=== PATIENT | female | born 1960 | race Caucasian/White ===

== ENCOUNTER 2018-02-15 04:36 | Emergency (ER) | payer MEDICARE, SELFPAY ==
[2018-02-15 04:38] VITALS: BP 152/115; PULSE 121; RESP 18; TEMP 36.7; O2SAT 95
--- NOTE | 2018-02-15 04:40 | CT_ITS ---
STUDY: CT ABDOMEN AND PELVIS WITH CONTRAST REASON FOR EXAM: Female, 57 years old. Abdominal pain, nausea and vomiting. RADIATION DOSAGE (If Supplied By Facility): CTDIvol = ( 17.53 ) mGy, DLP = ( 1064.19 ) mGycm TECHNIQUE: Transaxial images were obtained from the dome of the diaphragm to the symphysis pubis with oral contrast. 100mL ml of Isovue 300 contrast was administered. Sagittal and coronal images were reconstructed. Individualized dose optimization techniques were used for this CT. COMPARISON: 10/17/2016 FINDINGS: Some scarring in the left lung base. The visualized portions of the heart are within normal limits. Normal liver. There are multiple gallstones. Normal spleen. There is diffuse atrophy of the pancreas. Normal bilateral adrenal glands. There is mild cortical atrophy of the right kidney, consistent with chronic medical renal disease. There is mild cortical atrophy of the left kidney, consistent with chronic medical renal disease. Mild bilateral hydronephrosis. Patient is status post bladder resection with urostomy. There is a small hiatal hernia. Mildly distended loops of small bowel in the lower abdominal region with tiny air-fluid levels. No evidence of definitive small bowel obstruction. Right lower quadrant colostomy is noted. Extensive fecal retention noted throughout the colon with large left lower quadrant hernia containing loops of colon with possible developing wall thickening and some pericolonic edema.. There is non-visualization of the appendix. Normal abdominal aorta. Normal inferior vena cava. Normal retroperitoneum. Uterine atrophy is noted. CT/Abdomen/Pelvis WITH Contrast IMPRESSION: 1. Several loops of distal small bowel demonstrating mild distention with tiny air-fluid levels. Right lower quadrant ostomy. More likely to represent ileus and less likely small bowel obstruction however, follow-up plain films may be needed 2. Prominent fecal retention throughout the remainder of the colon 3. Again noted are loops of colon within a large hernia in the left lower quadrant region. Some of these loops demonstrate some wall thickening with pericolonic fat stranding in mild edema. 4. Remaining chronic findings as above Electronically Signed: Fabio Monteiro DO at 7:52 EDT Tel , Service support ,
[2018-02-15] MEDS: proMETHazine 25 MG/ML Syringe 12.5 MG IV (04:53)
[2018-02-15] MEDS: HYDROmorphone 1 MG/ML Syringe IV (04:54)
[2018-02-15 05:06] LABS: Absolute Lymphocyte Count 1.03 X10^3/ul (0.83-4.51); Absolute Neutrophil Count 7.7 X10^3/uL (2.0-7.7); Basophil# 0.02 X10^3/uL; Basophil% 0.2 % (0-1); Eosinophil# 0.12 X10^3/uL; Eosinophils% 1.3 % (0-5); Hematocrit 40.9 % (37-47); Hemoglobin 13.8 g/dl (12.0-15.0); Lymphocyte # 1.03 X10^3/ul (4.0); Lymphocyte % 11.2 % (19-41); Mean Corp Hgb Conc 33.7 g/gl (32-36); Mean Corpuscular Volume 79.9 fL (81-99); Mean Platelet Vol. 8.7 fl (6.2-12.0); Monocyte# 0.31 X10^3/uL; Monocyte% 3.4 % (0-10); Neutrophil % 83.5 % (47-70); Platelet Count 303 K/mm3 (150-450); RBC Distribution Width CV 14.4 % (11.6-14.6); RBC Distribution Width SD 40.7 fl (35.1-43.9); Red Blood Count 5.12 M/mm3 (4.2-5.4); White Blood Count 9.2 K/mm3 (4.4-11.0)
[2018-02-15 05:07] LABS: POSITIVE COUNT NO; POSITIVE DIFFERENTIAL NO; POSITIVE MORPHOLOGY NO
[2018-02-15 05:25] LABS: ALB/GLOB Ratio 0.7 RATIO (0.9-2.4); AST(SGOT) 15 U/L (15-37); Alanine Aminotransfer ALT/SGPT 21 U/L (13-56); Albumin, Serum 3.6 g/dL (3.2-5.0); Alkaline Phosphatase 76 U/L (45-117); Anion Gap 9 (5-15); BUN 21 mg/dL (7-18); BUN/Creat Ratio 41.7 RATIO (10-20); Calcium,Total 9.2 mg/dL (8.5-10.1); Chloride 102 mmol/L (98-107); EST Glomerular Filtration Rate 135 mL/min (>60); Est Glom Filt Rate - Afr Amer 163 mL/min (>60); Estimated Creatinine Clearance 138.28 ml/min; Globulin 4.9 g/dL (2.2-4.2); Glucose 212 mg/dL (74-106); Lipase 334 U/L (73-393); Potassium 3.8 mmol/L (3.5-5.1); Protein, Total 8.5 g/dL (6.4-8.2); Sodium Level 136 mmol/L (136-145)
--- NOTE | 2018-02-15 05:28 | ED.DCSUM_ITS ---
- ER Visit Summary Date of Service: 02/15/18 Chief Complaint: Abdominal pain History of Present Illness: The patient is a 57 F who presents with abdominal pain. She states that the symptoms started today when she woke up suddenly. She describes sharp diffuse pain in her abdomen. She has had nausea and vomiting at home. The patient has a colostomy in place. She states she had a normal bowel movement yesterday but no diarrhea. She is unsure about the output of her ostomy today. She also has a urostomy in the right upper quadrant. She has no fever. She took no medications for this at home. Physical Examination: Vital signs reviewed. HEENT exam unremarkable. Heart is cardiac in regular rhythm without murmurs. Lungs are clear to auscultation. Abdomen is soft diffuse tenderness to palpation. The patient has a colostomy in the left lower quadrant and a urostomy in the right upper quadrant. These areas appear to be unremarkable. Extremities reveal that she has bilateral amputations. Skin exam normal. Neurologic exam normal. Test Results: Laboratory studies are unremarkable except for glucose of 212. Patient was medicated with Dilaudid and Phenergan. Patient will have a CT scan with p.o. and IV contrast to rule out any bowel issues. Emergency Department Course and Treatment: [] Treatment Plan: [] Disposition: [] Impression: [] This note was generated with [employer] dictation software. It may contain incorrect words, spelling, and punctuation that were not noted in review of the chart prior to signing ED Disposition - Plan for ED Patient: Chief Complaint: Abd Pain Referrals: Adele Park MD [Primary Care Provider] -
[2018-02-15 06:39] VITALS: BP 122/72; PULSE 100; RESP 16
--- NOTE | 2018-02-15 08:20 | ED.VISSUMM ---
- ER Visit Summary Date of Service: 02/15/18 Chief Complaint: [] History of Present Illness: The patient is a 57 F [] Physical Examination: [] Test Results: [] Emergency Department Course and Treatment: [] Treatment Plan: [] Disposition: [] Impression: [] This note was generated with [employer] dictation software. It may contain incorrect words, spelling, and punctuation that were not noted in review of the chart prior to signing ED Disposition - Plan for ED Patient: Disposition: Home or Assisted Living Chief Complaint: Abd Pain Instructions: ED Constipation Referrals: Adele Park MD [Primary Care Provider] - 3-5 Days if not improving
== END 2018-02-15 09:00 | disposition home or self-care (01) ==
PROVIDERS: Emergency Provider Emergency Medicine; Family Provider Internal Medicine; PCP Internal Medicine
DX: R10.9 Unspecified abdominal pain (principal); R14.0 Abdominal distension (gaseous); K56.7 Ileus, unspecified; K59.00 Constipation, unspecified; K46.9 Unspecified abdominal hernia without obstruction or gangrene; G82.20 Paraplegia, unspecified; Z93.3 Colostomy status; Z93.6 Other artificial openings of urinary tract status; Z89.612 Acquired absence of left leg above knee; Z89.611 Acquired absence of right leg above knee
CPT/HCPCS: 74177; 80053; 83690; 85025; 96374; 96375; 99285; Q9967; A4216

== ENCOUNTER → 2018-05-31 17:26 | Outpatient (CLI) | payer MEDICARE, SELFPAY ==
[2018-05-31 19:46] LABS: Amphetamine Urine VISTA NEGATIVE (<1000 ng/mL); Barbiturate Urine VISTA NEGATIVE (< 200 ng/mL); Benzodiazepine Urine VISTA NEGATIVE (< 200 ng/mL); Cocaine Urine VISTA NEGATIVE (< 300 ng/mL); Ecstacy Urine VISTA NEGATIVE (< 500 ng/mL); Methadone Urine VISTA NEGATIVE (< 300 ng/mL); PCP Urine VISTA NEGATIVE (< 25 ng/mL); THC Urine VISTA NEGATIVE (< 50 ng/mL); Vista UDS pH Range 6
== END ==
PROVIDERS: Family Provider Internal Medicine; PCP Internal Medicine; Visit Provider Anesthesiology Pain Medicine
DX: F11.20 Opioid dependence, uncomplicated (principal)
CPT/HCPCS: 80307

== ENCOUNTER → 2019-01-05 08:30 | Outpatient (CLI) | payer MEDICARE, SELFPAY ==
--- NOTE | 2019-01-05 08:45 | RAD_ITS ---
STUDY: X-RAY - LUMBAR SPINE REASON FOR EXAM: Female, 58 years old. Back pain TECHNIQUE: 3 view(s) of the lumbar spine were obtained. COMPARISON: CT from 02/15/2018 and report of MRI of 10/21/2013 FINDINGS: Normal lumbar lordosis. There is a levoscoliosis of the lumbar spine. There is a normal alignment of the vertebrae. There is diffuse demineralization with multi-level endplate spondylosis. There is multi-level degenerative disc disease with multi-level disc space narrowing. Stable chronic deformity involving L1 and the adjacent T12 vertebral body overall similar in appearance since prior CT of 02/15/2018. There are surgical clips project in the lower abdomen. Moderate fecal retention identified throughout the visualized colon. Heterogeneous osteopenia with mixed sclerosis involving the visualized pelvis. Part of the sacrum appears to be surgically absent. RAD/Lumbar Spine 2 or 3 Views IMPRESSION: 1. Stable chronic destruction of L1 and adjacent T12 since prior CT of 02/15/2018. May represent sequela of chronic osteomyelitis/discitis, trauma or neoplasm. 2. Multilevel degenerative disc disease. 3. Partial surgical absence of the sacrum. Stable chronic deformity of the pelvis. Electronically Signed: Hermann Boothe MD at 12:01 EST , Service support ,
--- NOTE | 2019-01-05 08:45 | RAD_ITS ---
STUDY: X-RAY - CERVICAL SPINE REASON FOR EXAM: Female, 58 years old. Neck and back pain TECHNIQUE: 4 view(s) of the cervical spine were obtained. COMPARISON: None FINDINGS: Normal anterior atlantoaxial articulation. Normal odontoid process. Normal cervical lordosis. There is mild disc space narrowing with endplate sclerosis and spondylosis at C6-C7. Remaining disc levels are normal. The soft tissue structures are unremarkable. RAD/Cerv Spine 2 or 3 Views IMPRESSION: Mild degenerative disc disease at C6-C7. Electronically Signed: Hermann Boothe MD at 11:57 EST , Service support ,
== END ==
PROVIDERS: Family Provider Internal Medicine; PCP Internal Medicine; Referring Provider Anesthesiology Pain Medicine; Visit Provider Anesthesiology Pain Medicine
DX: M54.2 Cervicalgia (principal); M54.9 Dorsalgia, unspecified
CPT/HCPCS: 72040; 72100

== ENCOUNTER → 2019-02-14 17:17 | Outpatient (CLI) | payer MEDICARE, SELFPAY ==
[2019-02-14 18:17] LABS: Amphetamine Urine VISTA NEGATIVE (<1000 ng/mL); Barbiturate Urine VISTA NEGATIVE (< 200 ng/mL); Benzodiazepine Urine VISTA NEGATIVE (< 200 ng/mL); Cocaine Urine VISTA NEGATIVE (< 300 ng/mL); Ecstacy Urine VISTA NEGATIVE (< 500 ng/mL); Methadone Urine VISTA NEGATIVE (< 300 ng/mL); PCP Urine VISTA NEGATIVE (< 25 ng/mL); THC Urine VISTA NEGATIVE (< 50 ng/mL); Vista UDS pH Range 7
== END ==
PROVIDERS: Family Provider Internal Medicine; PCP Internal Medicine; Referring Provider Anesthesiology Pain Medicine; Visit Provider Anesthesiology Pain Medicine
DX: F11.20 Opioid dependence, uncomplicated (principal)
CPT/HCPCS: 80307

== ENCOUNTER 2020-10-21 05:31 | Inpatient (IN) | payer MEDICARE, SELFPAY ==
[2020-10-21] VITALS (16 sets, daily range): BP systolic 92–143; BP diastolic 30–96; PULSE 86–105; RESP 16–20; TEMP 36.3–37.2; O2SAT 79–98; BMI 25.0; BMI 26.6; BMI 26.7
--- NOTE | 2020-10-21 05:47 | ED.DCSUM_ITS ---
History of Present Illness Chief Complaint: Abd Pain Informant: Patient Narrative: Patient is a 60-year-old female with a past medical history of diabetes, colostomy and urostomy for nonhealing sacral ulcer who presents to the ED for abdominal pain and nausea/vomiting. The pain is in the left lower quadrant around her ostomy site. She has had this pain before but has been multiple years since then. She states that she feels like she has food poisoning. She denies any fevers or chills. No change in output from the ostomy. She is on Keflex chronically for UTI prophylaxis. She currently rates the pain as a 9 out of 10. She tried taking a Percocet for this which did not give her significant relief. The pain does not radiate to her back. She denies any black tarry or bloody output in her colostomy. Past Medical History - Allergies and Home Meds Allergies/Adverse Reactions: Allergies morphine Allergy (Verified 10/21/20 05:38) Rash hydrocodone bitartrate [From Vicodin] Adverse Reaction (Verified 10/21/20 05:38) HEADACHE ondansetron HCl [From Zofran (as hydrochloride)] Adverse Reaction (Verified 10/21/20 05:38) made me feel really weird Primary Care Physician: Adele Park MD [Primary Care Provider] - Prior records reviewed: Yes Surgical History: - - bilateral lower extremity amputation, colostomy, il eostomy, surgeries for sacral and bilateral pressure sores Smoking Status: Former smoker - Family History Maternal Family History: Reports: Diabetes, No pertinent history Paternal Family History: Reports: Diabetes, No pertinent history paternal Family History: Reports: No pertinent history Review of Systems All systems negative except as indicated General: Denies: Chills, Fever, Sweats Eyes: Denies: Visual changes - bilaterally, Diplopia ENT: Denies: Rhinorrhea, Sore throat Cardiovascular: Denies: Chest pain, Palpitations Respiratory: Denies: Dyspnea, Cough, Dyspnea on exertion Gastrointestinal: Reports: Abdominal pain, Nausea, Vomiting. Denies: Diarrhea, Melena, Hematochezia Genitourinary: Denies: Dysuria, Hematuria, Frequency Musculoskeletal: Denies: Back pain, Extremity Pain Skin: Denies: Rash, Wounds Neurological: Denies: Headache, Weakness, Numbness Physical Exam Vital Signs/Narrative: Vital Signs Temp Pulse Resp BP Pulse Ox 10/21/20 05:37 97.5 F L 105 H 16 143/96 H 96 10/21/20 05:32 97.5 F L 105 H 16 143/96 H 96 Inital Vital Signs reviewed: Yes General: Well nourished, Well developed, No Acute Distress Head: Normocephalic, Atraumatic Eyes: Perrl, EOMI ENT: Moist mucous membranes, No rhinorrhea Neck: Supple, Nontender Cardiovascular: Regular rhythm, No murmurs, Tachycardia Respiratory: No distress, CTA bilaterally, Chest nontender Abdomen: Soft, Nondistended, Normal bowel sounds, Tender - Mostly in the left lower quadrant surrounding the colostomy site., - - Urostomy and colostomy site appear healthy.. Negative for: Guarding, Rebound tenderness Back: Nontender, Normal Inspection Extremities: Nontender, No edema, - - Bilateral lower extremity amputations Skin: Normal color, No rash Neurological: Alert, Oriented x3, Normal Strength, Normal Sensation Psychological: Normal affect, Normal Mood Diagnostic/Tx/Re-eval - Medical Decision Making Patient presents to the emergency department for abdominal pain and nausea/vomiting. Upon arrival to the emergency department she is mildly tachycardic but otherwise normal vital signs. She does not appear in acute distress. Patient treated symptomatically with hydromorphone and Phenergan given her allergies. Will check basic lab work and CT scan of the abdomen/pelvis. Patient suffered did not reveal any significant acute abnormality. Currently waiting on CT imaging. Patient signed out due to end of shift. Disposition will be based on CT of the scan findings. ED Disposition - Plan for ED Patient: Diagnosis: Abdominal pain Referrals: Adele Park MD [Primary Care Provider] -
--- NOTE | 2020-10-21 05:47 | CT_ITS ---
STUDY: CT ABDOMEN AND PELVIS WITH CONTRAST REASON FOR EXAM: Female, 60 years old. LLQ pain today, hx colostomy, urostomy, non-healing sacral ulcer, transverse myelitis with paralysis, diabetes. RADIATION DOSAGE (If Supplied By Facility): CTDIvol = ( 21.24 ) mGy, DLP = ( 1205.89 ) mGycm TECHNIQUE: Transaxial images were obtained from the dome of the diaphragm to the symphysis pubis with oral contrast. was administered. Sagittal and coronal images were reconstructed. Individualized dose optimization techniques were used for this CT. COMPARISON: 02/15/2018 FINDINGS: There are chronic interstitial fibrotic changes of the lung bases. The visualized portions of the heart are within normal limits. Normal liver. There are multiple gallstones. Normal spleen. Normal pancreas. Normal bilateral adrenal glands. Atrophy of the bilateral kidneys with multiple areas of cortical scarring. Bilateral nephrolithiasis increased in size and number since the prior study without hydronephrosis demonstrated. Normal visualized stomach. There are multiple distended loops of small bowel in the lower abdomen which are fluid-filled with maximum luminal diameter measuring 3.3 cm. There is a transition point in the left lower abdomen (anterior) evident on images 100-105 with small bowel fecalization seen on image 100. Just beyond the transition point, there is relative wall thickening of the bowel distal to the transition point. Right lower quadrant ileostomy is identified. Left lower quadrant hernia containing colon is overall stable; query history of colostomy. Diffuse fecal retention throughout the colon. There is diffuse atherosclerotic calcification of the abdominal aorta, without a demonstrated aneurysm. Small caliber infrarenal IVC and iliac veins. Normal retroperitoneum. Normal urinary bladder. Broad eventration of the anterior abdominal wall with protruding colon stable. Similar chronic deformity of the pelvis and proximal femurs/hips. No gali bony destructive process. There are ossifications within the spinal canal (image 31). CT/Abdomen/Pelvis WITH Contrast IMPRESSION: 1. Small bowel obstruction with transition point in the anterior left lower abdomen. No pneumoperitoneum, ascites or focal fluid collection. 2. Increasing bilateral nephrolithiasis without hydronephrosis. Cystectomy. Right lower quadrant ileostomy. 3. Additional similar chronic changes, as above and previously reported. Electronically Signed: Hermann Boothe MD ([place]) at 8:06 EST , Service support ,
[2020-10-21 05:57] LABS: Absolute Lymphocyte Count 0.93 X10^3/uL (0.83-4.51); Absolute Neutrophil Count 8.3 X10^3/uL (2.0-7.7); Basophil# 0.04 X10^3/uL; Basophil% 0.4 % (0-1); Eosinophil# 0.09 X10^3/uL; Eosinophils% 0.9 % (0-5); Hemoglobin 15.8 g/dL (12.0-15.0); Lymphocyte # 0.93 X10^3/ul (4.0); Lymphocyte % 9.6 % (19-41); Mean Corp Hgb Conc 30.4 g/dL (32-36); Mean Corpuscular Hgb 25.6 pg (27.0-32.0); Mean Corpuscular Volume 84.1 fL (81-99); Mean Platelet Vol. 10.4 fl (6.2-12.0); Monocyte# 0.26 X10^3/uL; Monocyte% 2.7 % (0-10); NRBC Flagged by Analyzer 0 % (0-5); Neutrophil # 8.32 X10^3/uL (2.7-7.7); Neutrophil % 85.9 % (47-70); POSITIVE COUNT YES; Platelet Count 189 K/mm3 (150-450); RBC Distribution Width CV 16.9 % (11.6-14.6); RBC Distribution Width SD 47.2 fl (35.1-43.9); Red Blood Count 6.18 M/mm3 (4.2-5.4); White Blood Count 9.7 K/mm3 (4.4-11.0)
[2020-10-21] MEDS: HYDROmorphone 1 MG/ML Syringe IV (05:57)
[2020-10-21] MEDS: proMETHazine 25 MG/ML Syringe 12.5 MG IV (05:57)
[2020-10-21 05:58] LABS: Differential Indicated SCAN CRITERIA MET
[2020-10-21 06:27] LABS: ALB/GLOB Ratio 0.7 RATIO (0.9-2.4); AST(SGOT) 40 U/L (15-37); Alanine Aminotransfer ALT/SGPT 22 U/L (13-56); Albumin, Serum 3.9 g/dL (3.2-5.0); Alkaline Phosphatase 93 U/L (45-117); Anion Gap 4 (5-15); BUN 23 mg/dL (7-18); BUN/Creat Ratio 35.2 RATIO (10-20); Calcium,Total 9.9 mg/dL (8.5-10.1); Chloride 103 mmol/L (98-107); Creatinine, Serum 0.65 mg/dL (0.55-1.02); EST Glomerular Filtration Rate 99 mL/min (>60); Est Glom Filt Rate - Afr Amer 120 mL/min (>60); Estimated Creatinine Clearance 91.74 ml/min; Globulin 5.3 g/dL (2.2-4.2); Glucose 199 mg/dL (74-106); Lipase 139 U/L (73-393); Potassium 4.8 mmol/L (3.5-5.1); Protein, Total 9.2 g/dL (6.4-8.2); Sodium Level 134 mmol/L (136-145)
[2020-10-21] MEDS: Metoclopramide 10 MG/2 ML Vial 5 MG IV (08:27)
--- NOTE | 2020-10-21 08:38 | RAD_ITS ---
STUDY: X-RAY - ABDOMEN/PELVIS REASON FOR EXAM: Female, 60 years old. NG tube insertion. TECHNIQUE: Single AP view of the abdomen / pelvis. Limited upper abdominal image for tube placement. COMPARISON: None. FINDINGS: Enteric tube extends to the gastric body. There is atelectasis in the lung bases. Visualized bowel gas pattern is unremarkable. There is no demonstrated free abdominal air. The visualized liver, spleen and kidneys are grossly normal in size and morphology. Normal soft tissue structures. There are diffuse degenerative changes of the visualized lumbar spine. RAD/Abdomen Single View (Portable) IMPRESSION: Enteric tube extends the stomach. Electronically Signed: Hermann Boothe MD ([place]) at 9:30 EST , Service support ,
--- NOTE | 2020-10-21 08:40 | NURSING ---
HOSPITALIST PAGED DR Elbert ESPINAL PAGEGokul
--- NOTE | 2020-10-21 08:54 | NURSING ---
DR OSCAR DÍAZ
--- NOTE | 2020-10-21 08:55 | NURSING ---
DR Elbert ESPINAL IN ROOM
[2020-10-21] MEDS: HYDROmorphone 0.5 MG/0.5 ML SYRINGE IV (08:57)
[2020-10-21] MEDS: Lidocaine Jelly 2% 20 ML Syringe (URO-JET) 20 APPLIC TOPICAL (09:00)
--- NOTE | 2020-10-21 09:02 | NURSING ---
MED SURG SBO, ACUTE PRERENAL AZOTEMIA, HYPERGLYCEMIA OSCAR
--- NOTE | 2020-10-21 09:07 | CON.PCM_ITS ---
Problem List (1) Small bowel obstruction Status: Acute Reason for Consult Date of Consultation: 10/21/20 History of Present Illness: The patient is a 60 year old F who presents emergency room with acute onset of abdominal pain. I have been asked to provide surgical consultation by Dr. Bell for suspected small bowel obstruction and a written copy of my surgical consult and recommendations will be present in the electronic charting. 60-year-old female. She developed severe acute abdominal pain today. She claims the pain is 9 out of 10 though visually she does not appear to be in that much distress. She states that her left lower quadrant colostomy has decreased in output. It is of note that she has not had any of her abdominal surgery performed locally. She is unsure about the dates. She states the first procedure that she had had done was done she thinks in [place] which was the left lower quadrant diverting colostomy. Soon thereafter it developed a parastomal hernia and no attempt is ever been pursued at repair. She then stat es that may be 6 years ago at [facility] she had a diverting urinary ileostomy in the right lower quadrant. A CT scan was obtained and there is felt to be small bowel obstruction with a transition point in the anterior left lower quadrant. There is evidence of a left lower quadrant large parastomal hernia with significant colon involvement but unchanged from a previous study of February 15, 2018. There is evidence of a right lower quadrant ileostomy. Beyond the transition point of the small bowel there is felt to be relative wall thickening of the bowel. Her laboratory notable for a white blood cell count of 9.7 with an hemoglobin 15.8 hematocrit of 52 platelet count 187,000 with 85.9% neutrophils. BUN is 23 and creatinine 0.65. Glucose is 199. Lipase is 139. Patient has significant medical problems including type 2 diabetes mellitus and history of diverting colostomy and history of diverting ileostomy both due to sacral pressure sores. Dr. Miguel valentino is assisted with previous debridement. Patient has chronic transverse myelitis. She has had amputation of bilateral lower extremities above knee. She states that Dr. Evaristo Jiang performed the left lower extremity amputation and she states remotely in the I performed the right lower extremity amputation. The patient lives at home with her and son. She states she has not had a previous history of small bowel obstruction. She states that her abdomen always appears chunky bloated distended. Past Medical History Past Medical History (Chronic Problems): Chronic Problems Panic disorder (Chronic) History of renal stone (Chronic) Transverse myelitis (Chronic) urostomy colostomy Ureteral stenosis (Chronic) DM II (diabetes mellitus, type II), controlled (Chronic) Anemia of chronic disease (Chronic) Low back pain (Chronic) Colostomy in place (Chronic) History of urostomy (Chronic) With ileal conduit Hypoalbuminemia (Chronic) Nephrolithiasis (Chronic) Sacral decubitus ulcer, stage IV (Chronic) Nonhealing for many years Allergies morphine Allergy (Verified 10/21/20 05:38) Rash hydrocodone bitartrate [From Vicodin] Adverse Reaction (Verified 10/21/20 05:38) HEADACHE ondansetron HCl [From Zofran (as hydrochloride)] Adverse Reaction (Verified 10/21/20 05:38) made me feel really weird Home Medications: Ambulatory Orders Medication Instructions Recorded Acetaminophen/Diphenhydramine 2 tab PO QHS 09/15/16 [Tylenol Pm Ex-Strength Caplet] Metformin [Metformin HCl] 1,000 mg PO LUNCH 09/15/16 Oxycodone HCl/Acetaminophen 1 tablet PO TID PRN PRN 11/24/16 [Percocet 5-325] Surgical History: - - bilateral lower extremity amputation, colostomy, ileostomy, surgeries for sacral and bilateral pressure sores Psychiatric History: No pertinent psych hx MEDICAL APPLIANCE MAKER History: No pertinent MEDICAL APPLIANCE MAKER history Smoking Status: Former smoker - *Family History Maternal History Items: Diabetes, No pertinent history Paternal History Items: Diabetes, No pertinent history paternal History Items: No pertinent history Review of Systems Constitutional: Denies: Fever HEENT: Denies: Difficulty Swallowing Cardiovascular: Denies: Chest Pain Respiratory: Denies: Cough, Shortness of Breath Gastrointestinal: Reports: Abdominal Pain, Nausea Skin: Denies: Jaundice Psychiatric: Reports: Anxiety Endocrine: Denies: Change in Body Habitus Patient Problems: Active and Suspected Problems Abdominal pain (Acute) - Physical Exam Vitals/I&O's: Vital Signs Temp Pulse Resp BP Pulse Ox 98.1 F 93 17 108/77 98 10/21/20 08:16 10/21/20 08:16 10/21/20 08:16 10/21/20 08:16 10/21/20 08:16 Oxygen Delivery Method Room Air Weight: 159 lb 6.307 oz Body Mass Index (BMI) 25.0 Finger Stick Blood Glucose 107 General: Alert, Oriented x3, Cooperative, No apparent distress HEENT: Atraumatic Oral: Moist Mucosa Neck: Supple Lungs: Clear to auscultation, - - Diminished respiratory excursion Cardiovascular: Regular rate, Regular Rhythm Abdomen: Bowel Sounds Not Present, Distended, - - Minimal tenderness to deep pa lpation, left lower quadrant colostomy with a large nontender parastomal hernia Right lower quadrant ileostomy Extremities: - - Bilateral above-knee leg amputations Skin: - - Abdominal skin is clean Musculoskeletal: No Tenderness to Palpation of Joints or Extremities Neurological: - - Cognition intact Psych/Mental Status: Anxious Laboratory Results 10/21/20 05:50: WBC 9.7, RBC 6.18 H, Hgb 15.8 H, Hct 52.0 H, MCV 84.1, MCH 25.6 L, MCHC 30.4 L, RDW Std Deviation 47.2 H, RDW Coeff of Patel 16.9 H, Plt Count 189, MPV 10.4, Immature Gran % (Auto) 0.500, Neut % (Auto) 85.9 H, Lymph % (Auto) 9.6 L, Cascade % (Auto) 2.7, Eos % (Auto) 0.9, Baso % (Auto) 0.4, Absolute Neuts (auto) 8.3 H, Absolute Lymphs (auto) 0.93, Nucleated RBC % 0 10/21/20 05:50: Sodium 134 L, Potassium 4.8, Chloride 103, Carbon Dioxide 27.0, Anion Gap 4 L, BUN 23 H, Creatinine 0.65, Estim Creat Clear Calc 91.74, Est GFR (MDRD) Af Amer 120, Est GFR (MDRD) Non-Af 99, BUN/Creatinine Ratio 35.2 H, Glucose 199 H, Calcium 9.9, Total Bilirubin 0.60, AST 40 H, ALT 22, Alkaline Phosphatase 93, Total Protein 9.2 H, Albumin 3.9, Globulin 5.3 H, Albumin/Globulin Ratio 0.7 L, Lipase 139 Assessment/Plan All Active Problems Abdominal pain (Acute) Small bowel obstruction (Acute) Hypotension (Acute) UTI (urinary tract infection) (Acute) Pyelonephritis (Acute) Sepsis (Acute) Hyponatremia (Acute) Dehydration (Acute) Osteomyelitis of sacroiliac region (Resolved) 60-year-old female with a presentation consistent with small bowel obstruction likely secondary to adhesions. She has a left lower quadrant long-term diverting colostomy with a large parastomal hernia. Apparently this has been present ever since its creation and was present at the creation of her loop i leostomy and no attempt was made to repair it at that time. She has a right lower quadrant loop ileostomy for urinary diversion. I suspect that the patient's small bowel obstruction is in part secondary to the creation of this loop ileostomy. It may well be pertinent to obtain urology consultation as well in case surgical intervention is required. The patient is short with a rotund distended abdomen. She has had previous open operations. With the complexity of her large and small bowel diversions she would likely not be a candidate for laparoscopic exploration. With 2 stomas open operation which clearly carry increased risk of infection. I would recommend all attempts at nonoperative conservative management. The patient does not currently have a acute surgical abdomen. An NG tube is currently being placed. I recommend obtaining a lactic acid level and Covid testing. Pending the patient's progress with NG tube decompression can then consider timing of a future Gastrografin small bowel follow-through. We will try to avoid treatment with narcotics. The patient has had an opportunity to ask and have questions answered. She is aware that maximization of medical care at this point would be pertinent. Power Thorne M.D., F.A.C.S.
--- NOTE | 2020-10-21 09:12 | RAD_ITS ---
STUDY: X-RAY CHEST REASON FOR EXAM: Female, 60 years old. Hypoxia. TECHNIQUE: AP COMPARISON: 12/09/2017 FINDINGS: Enteric tube extends to the stomach. Lungs are underexpanded with atelectasis in the lung bases. There is no demonstrated pleural abnormality. Normal size heart. Normal mediastinum and trae. Normal visualized pulmonary arteries. Normal visualized aortic arch and descending thoracic aorta. Normal visualized thoracic spine. Normal visualized ribs, clavicles, and shoulders. There is no demonstrated abnormality of the visualized soft tissue structures of the upper abdomen. RAD/Chest 1 View (Portable) IMPRESSION: Enteric tube extends to the stomach. Bibasilar atelectasis. Electronically Signed: Hermann Boothe MD ([place]) at 9:30 EST , Service support ,
--- NOTE | 2020-10-21 09:21 | ED.RN ---
DR DÍAZ AND DR MOORE UPDATED ON PT HYPOXIC AFTER NG INSERTION. KUB AND CHEST XRAY COMPLETED. PLACE ON O2 VIA VENTI MASK
--- NOTE | 2020-10-21 09:52 | NURSING ---
DR MOORE IN ROOM
--- NOTE | 2020-10-21 10:09 | HP.PCM_ITS ---
History of Present Illness Date of Admission: 10/21/20 Chief Complaint: Abdominal Pain Ms Palacios is a 60 year old WF with a PMH of transverse myelitis, B LE AKA, Sacral decubitus-chronic and diverting urostomy and colostomy who presented to the ED on the AM of 10/21/2020 with abdominal pain that started yesterday afternoon but progressed to a 9/10 today. She states that she has not had any ostomy output since yesterday am and has had nausea accociated with this as well. She is unclear on the exact timing of her colostomy and diverting urostomy although she believes they both were done within the last [address] was done in the ED and demonstrates a SBP with a transtion point in the ant LLQ. She has no ostomy output. She states that she had an episode similar to this in early September that resolved at home with no intervention but reports that her sx were not as bad at that time. Her VSS were stable until an NGT was place and dilaudid was given and then she had desaturations for which a NRB was placed and for this reason will admit to PCU for closer monitoring. Imaging shows NGT is appropriately placed. She looks mildly dehydrated with an elevated hgb, BUN and low Na. Her glucose is 199 and her lactate is 0.9. LFT are WNL. She has no white count elevation Past Medical History Past Medical History (Chronic Problems): Chronic Problems Panic disorder (Chronic) History of renal stone (Chronic) Transverse myelitis (Chronic) urostomy colostomy Ureteral stenosis (Chronic) DM II (diabetes mellitus, type II), controlled (Chronic) Anemia of chronic disease (Chronic) Low back pain (Chronic) Colostomy in place (Chronic) History of urostomy (Chronic) With ileal conduit Hypoalbuminemia (Chronic) Nephrolithiasis (Chronic) Sacral decubitus ulcer, stage IV (Chronic) Nonhealing for many years Allergies morphine Allergy (Verified 10/21/20 05:38) Rash hydrocodone bitartrate [From Vicodin] Adverse Reaction (Verified 10/21/20 05:38) HEADACHE ondansetron HCl [From Zofran (as hydrochloride)] Adverse Reaction (Verified 10/21/20 05:38) made me feel really weird Home Medications: Ambulatory Orders Medication Instructions Recorded Acetaminophen/Diphenhydramine 2 tab PO QHS 10/27/16 [Tylenol Pm Ex-Strength Caplet] Metformin [Metformin HCl] 1,000 mg PO LUNCH 09/15/16 Oxycodone HCl/Acetaminophen 1 tablet PO TID PRN PRN 11/24/16 [Percocet 5-325] Surgical History: - - bilateral lower extremity amputation, colostomy, ileostomy, surgeries for sacral and bilateral pressure sores Psychiatric History: No pertinent psych hx MORTGAGE SPECIALIST History: No pertinent MORTGAGE SPECIALIST history Lives: With Family Smoking Status: Former smoker Alcohol: Rare Drugs: None - *Family History Maternal History Items: Diabetes, No pertinent history Paternal History Items: Diabetes, No pertinent history paternal History Items: No pertinent history Review of Systems Constitutional: Denies: Anorexia, Chills, Fever, Night Sweats, Malaise, Weakness, Weight Change, Fatigue Eyes: Denies: Blurred vision, Conjunctivae Inflammation, Drainage, Eyelid Inflammation, Pain, Redness, Vision Change HEENT: Denies: Difficulty Hearing, Difficulty Swallowing, Head Aches, Nasal bleeding, Nasal Congestion, Post Nasal Drip, Sinus Drainage, Sore Throat, Visual Changes Cardiovascular: Denies: Chest Pain, Claudication, Chest Pressure, Chest Tightness, Edema, Heaviness, Light Headedness, Orthopnea, Palpitations, Paroxysmal Noc. Dyspnea, Syncope Respiratory: Denies: Cough, Hemoptysis, Pleuritic Pain, Shortness of Breath, Shortness of breath at rest, Shortness of breath upon exertion, Sputum production, Wheezing Gastrointestinal: Reports: Abdominal Pain, Constipation, Nausea, Vomiting. Denies: Hematemesis, Hematochezia, Melena Genitourinary: Denies: Dysuria, Frequency, Hematuria, Hesitancy, Incontinence, Nocturia, Retention, Urgency Musculoskeletal: Reports: Back Pain. Denies: Joint Pain, Joint stiffness, Joint swelling, Joint Tenderness, Muscle pain, Neck Pain Skin: Reports: Wounds - sacral-almost healed per pt. Denies: Dryness, Jaundice, Lesions, Pruritis, Rash, Skin Changes Neurological: Denies: Blurred vision, Double vision, Change in Speech, Slurred speech, Confusion, Difficulty swallowing, Focal weakness, Headaches, Incoordination, Tremor, Seizures Psychiatric: Reports: Anxiety, Depression Endocrine: Denies: Change in Body Habitus, Heat/ Cold Intolerance, Polydipsia, Polyuria Hematologic/ Lymphatic: Denies: Adenopathy, Anemia, Easy Bruising, Easy Bleeding, Petechiae, Purpura VTE Information - Inpt Only VTE Present on Admission: No VTE Mechan Device Prophylaxis: None VTE Pharm Prophylaxis ordered?: Yes Patient Problems: Active and Suspected Problems Abdominal pain (Acute) Small bowel obstruction (Acute) - Physical Exam Vitals/I&O's: Vital Signs Temp Pulse Resp BP Pulse Ox 98.9 F 93 20 H 127/82 H 93 10/21/20 09:26 10/21/20 09:26 10/21/20 09:26 10/21/20 09:26 10/21/20 09:26 Oxygen Flow Rate (L/min) 6 Oxygen Delivery Method Venturi Mask Weight: 72.3 kg Body Mass Index (BMI) 25.0 Finger Stick Blood Glucose 107 General: Alert, Oriented x3, Cooperative, Well developed, Well nourished, - - sleepy from pain medication but arousable, on NRB with SpO2 89-94%, NGT in place HEENT: Atraumatic, PERRLA, EOMI, Normocephalic, EAC Clear Oral: No Gingival or Mucosal Lesions/ Ulcerations, Dry Mucosa, - - fair dentition Neck: Supple, No JVD, Negative Carotid Bruits, No Nuchal Rigidity, Trachea Midline, Thyroid Normal Size and Texture Lungs: Clear to auscultation, Normal air movement, No rhonchi, No wheeze, No rales Cardiovascular: Regular rate, Regular Rhythm, Normal S1, Normal S2, No murmurs, No Ectopic Activity, No rub noted, No Gallop Abdomen: Soft, Non Tender, No Hepato-splenomegaly, Distended - mild to mod, - - BS are hypoactive, Urostomy with good urine output R LQ, Colostomy LLQ no output, stoma is pink Extremities: No clubbing, No cyanosis, No edema, Capillary Refill Less than 3 Seconds, Peripheral Pulses Normal - B UE, - Skin: No rashes, - - sacral wound Musculoskeletal: No Tenderness to Palpation of Joints or Extremities, No Muscle Wasting, - - B LE amputation Lymphatic: No Cervical, Supraclavicular, or Inguinal Adenopathy Neurological: Cranial nerves II-XII grossly intact, Neuro grossly intact, Muscle tone normal, Coordination normal Psych/Mental Status: Normal Affect, Appropriate, Alert and oriented to time, place, person, mood and affect Laboratory Results 10/21/20 05:50: WBC 9.7, RBC 6.18 H, Hgb 15.8 H, Hct 52.0 H, MCV 84.1, MCH 25.6 L, MCHC 30.4 L, RDW Std Deviation 47.2 H, RDW Coeff of Patel 16.9 H, Plt Count 189, MPV 10.4, Immature Gran % (Auto) 0.500, Neut % (Auto) 85.9 H, Lymph % (Auto) 9.6 L, Rush % (Auto) 2.7, Eos % (Auto) 0.9, Baso % (Auto) 0.4, Absolute Neuts (auto) 8.3 H, Absolute Lymphs (auto) 0.93, Nucleated RBC % 0 10/21/20 05:50: Sodium 134 L, Potassium 4.8, Chloride 103, Carbon Dioxide 27.0, Anion Gap 4 L, BUN 23 H, Creatinine 0.65, Estim Creat Clear Calc 91.74, Est GFR (MDRD) Af Amer 120, Est GFR (MDRD) Non-Af 99, BUN/Creatinine Ratio 35.2 H, Glucose 199 H, Calcium 9.9, Total Bilirubin 0.60, AST 40 H, ALT 22, Alkaline Phosphatase 93, Total Protein 9.2 H, Albumin 3.9, Globulin 5.3 H, Albumin/Globulin Ratio 0.7 L, Lipase 139 10/21/20 09:40: Lactic Acid Pending Assessment/Plan All Active Problems Abdominal pain (Acute) Small bowel obstruction (Acute) Hypotension (Acute) UTI (urinary tract infection) (Acute) Pyelonephritis (Acute) Sepsis (Acute) Hyponatremia (Acute) Dehydration (Acute) Osteomyelitis of sacroiliac region (Resolved) SBO -conservative mgt at this time -NGT -IVF--> LR at 100 cc/hr -pain meds--> low dose dilaudid as pt seems very sensitive to pain meds -General Surgery is following -will get Urology involved if it appears that pt will need to go to the OR Dehydration -IVF 100 cc/hr -repeat lab in am Hypovolemic Hyponatremia -fluid resuscitation -repeat in am DM-2 -takes metformin alone at home -check A1c -SSI q 6 hrs only for now -BGT q 6 Sacral Pressure Wound -consult wound care to follow -s/p diverting colostomy and urostomy H/O Transverse Myelitis -dx at 23 yo B ELISA JOHNSON -related to wound development after TM dx DVT Prophylaxis -heparin BID Code Status -Full Inpatient E&M: 97896 Init Hosp L3
--- NOTE | 2020-10-21 10:11 | NURSING ---
NEW ROOM PCU
[2020-10-21 10:16] LABS: Lactic Acid 0.9 mmol/L (0.4-1.9)
[2020-10-21] MEDS: Lactated Ringers 1,000 ML 100 ML IV ×2 (13:34→21:54)
[2020-10-21] MEDS: Heparin Injection (Vial) 5,000 UNIT/ML VIAL 5000 UNIT SC ×2 (14:53→21:34)
[2020-10-21 15:15] LABS: Bedside Glucose 158 mg/dL (70-110)
--- NOTE | 2020-10-21 15:21 | NURSING ---
Was asked to see patient for chronic wounds to sacrum and left lateral abdomen. Pt was admitted with a bowel obstruction. Pt does have a colostomy and ileal conduit. Pt states appliances are due to be changed. colostomy appliance was very full of thick soft brown stool. appliance removed and a moderate amount of thick soft brown stool out. pt states abdomen feels much softer now. pt does have an NG tube that is currently clamped. both appliances changed at this time. peristomal skin is intact. pt tolerated well. Dr Grande notified of stool output.
--- NOTE | 2020-10-21 15:26 | NURSING ---
wound photo: sacrum
--- NOTE | 2020-10-21 15:27 | NURSING ---
wound photo: left lateral abdomen
--- NOTE | 2020-10-21 15:55 | CASEMGMT ---
RN JONATAN [employer] ADJUSTER CM to room to meet with patient for initial transition planning/care coordination assessment. JUAN R CHEUNG introduced self and role at [facility].? Pt voices understanding and consents to assessment at this time.? Pt resting in bed in no distress at this time.? Pt is A/O at this time and answers all questions appropriately.?? Care providers, pharmacy, and demographics verified/updated at this time. PCP: Dr Park Specialists: Dr Moreno--pain mgmt Preferred Pharmacy: [facility] Insurance: MCR A, B Prescription Benefit:? None. Living Will/HPOA:? Pt does not currently have LW/HCPOA and declines info at this time.? Pt made aware that she can contact as an out-pt and make appt in the future if she decides she would like to talk with someone about this or would like to utilize [facility] social work for advanced directive completion.? LNOK: , Hermann. Daughter, Faby. Son Living Arrangements: Lives w/her in one-story home w/ramp entrance. assists w/bathing and dressing, wound care/dressing changes, and mgmt of ostomy bags. Pt/ share home mgmt tasks. Pt manages her own meds/appts. Transportation: or son DME: ? States has the following DME:? rails/grab bars, hand held shower, W/C, Glucometer. Has a hospital bed and shower chair but does not use them. ?Pt states no need for further DME at this time.? HHC/SNF: Hx of [facility] and SNF in [place]. Hx of [facility] HHC and another one which she does not remember name. Declines need for HHC or OP therapy. Pt wishes to return home and states has no concerns with going home at time of discharge.? CM to follow for any discharge planning/needs.? Pt voices no concerns/needs at this time.? Advised pt to ask for CM if any questions/concerns/needs arise.? Voices understanding. PLAN: ?Home w/family support and discharge plans in place. No Rx coverage. Follow for cost of meds @ discharge. Lorenza LOCKETT RN, CM
[2020-10-21 17:50] LABS: Bedside Glucose 115 mg/dL (70-110)
[2020-10-21] MEDS: HYDROmorphone 0.5 MG/0.5 ML SYRINGE 0.25 MG IV (21:54)
[2020-10-21 23:35] LABS: Bedside Glucose 124 mg/dL (70-110)
[2020-10-22 03:05] VITALS: PULSE 90
[2020-10-22 03:45] VITALS: BP 108/60; PULSE 85; RESP 16; TEMP 36.6; O2SAT 94
--- NOTE | 2020-10-22 05:00 | RAD_ITS ---
HISTORY: Small bowel obstruction. Comparison study is an x-ray from yesterday, and a CT scan from yesterday. Findings: The left femoral neck chronic fracture with severe bony remodeling of the left acetabulum is unchanged. 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 Fracture to the L2 vertebral body with hyperostosis and focal scoliosis remains. Calcifications within the left hemiabdomen, likely within the left kidney remain. Since the previous study and esophagogastric tube has been placed. The tip in the proximal sidehole both below the diaphragm, likely within the stomach. Multiple gallstones are present right lateral to the L3 vertebral body. Lung bases are relatively clear. RAD/Abd Decub and/or Erect(Portabl IMPRESSION: Adequate position of esophagogastric tube. No definitive small bowel obstruction on the x-ray.. at 0542 Reported and signed by: Edilberto Charles MD Electronically Signed: Edilberto Charles MD at 5:41 EST Tel , Service support ,
[2020-10-22] MEDS: Lactated Ringers 1,000 ML 100 ML IV (05:29)
[2020-10-22 05:51] LABS: Bedside Glucose 122 mg/dL (70-110)
--- NOTE | 2020-10-22 06:14 | PN.SURG_ITS ---
Patient Problems: Active and Suspected Problems Abdominal pain (Acute) Small bowel obstruction (Acute) Subjective: Patient is feeling much improved. Essentially no abdominal pain. She is still having stool per colostomy. She had a large amount of output yesterday. She shares with me that for at least 1 year she has been on routine Percocet therapy prescribed by Dr. Moreno for chronic neck pain issues. - Physical Exam Vitals/I&O's: Vital Signs Temp Pulse Resp BP Pulse Ox 97.9 F 85 16 108/60 94 10/22/20 03:45 10/22/20 03:45 10/22/20 03:45 10/22/20 03:45 10/22/20 03:45 Oxygen Flow Rate (L/min) 2 Oxygen Delivery Method Nasal Cannula Weight: 160 lb 4.417 oz Body Mass Index (BMI) 26.6 Finger Stick Blood Glucose 107 Intake and Output for Last 24 Hours 10/20/20 10/21/20 10/22/20 23:59 23:59 23:59 Intake Total 863.33 / 863.33 818.33 / 818.33 Output Total 800 / 800 470 / 470 Balance 63.33 / 63.33 348.33 / 348.33 Abdomen: Soft, Non Tender, Hypoactive Bowel Sounds Microbiology Past 72 Hours 10/21/20 10:00 Mucosa - Nose SARS-CoV-2 Antigen (Rapid) - Final Laboratory Results 10/21/20 05:50: Sodium 134 L, Potassium 4.8, Chloride 103, Carbon Dioxide 27.0, Anion Gap 4 L, BUN 23 H, Creatinine 0.65, Estim Creat Clear Calc 91.74, Est GFR (MDRD) Af Amer 120, Est GFR (MDRD) Non-Af 99, BUN/Creatinine Ratio 35.2 H, Glucose 199 H, Calcium 9.9, Total Bilirubin 0.60, AST 40 H, ALT 22, Alkaline Phosphatase 93, Total Protein 9.2 H, Albumin 3.9, Globulin 5.3 H, Albumin/Globulin Ratio 0.7 L, Lipase 139 10/21/20 09:40: Lactic Acid 0.9 10/21/20 13:37: POC Glucose 158 H 10/21/20 17:45: POC Glucose 115 H 10/21/20 23:26: POC Glucose 124 H 10/22/20 05:18: POC Glucose 122 H Current Medications Heparin Sodium (Porcine) (Heparin Injection (Vial) 5,000 Unit/Ml Vial) 5,000 unit SC Q12 [facility] Last Admin: 10/21/20 21:34 Dose: 5,000 unit Documented by: Hydromorphone HCl (Hydromorphone 0.5 Mg/0.5 Ml Syringe) 0.25 mg IV Q6H PRN PRN PRN Reason: Pain Score 6-10 Last Admin: 10/21/20 21:54 Dose: 0.25 mg Documented by: Lactated Ringer's () 1,000 mls @ 100 mls/hr IV .Q10H ROBERT Last Admin: 10/22/20 05:29 Dose: 100 mls/hr Documented by: Influenza Virus Vaccine Quadrival (Influenza Vaccine (6mos+)/Pf 0.5 Ml Syringe) 0.5 ml IM .ONCE ONE Stop: 10/22/20 10:01 Insulin Human Lispro (Insulin Lispro 100 Unit/Ml Insuln.Pen) 0 unit SC Q6 ROBERT; Protocol Last Admin: 10/22/20 05:28 Dose: Not Given Documented by: Promethazine HCl (Promethazine 25 Mg/Ml Syringe) 6.25 mg IV Q6H PRN PRN PRN Reason: NAUSEA/VOMITING Medical Necessity - Tobacco Use Smoking Status: Former smoker Tobacco Use: Non-smoker Assessment/Plan All Active Problems Abdominal pain (Acute) Small bowel obstruction (Acute) Hypotension (Acute) UTI (urinary tract infection) (Acute) Pyelonephritis (Acute) Sepsis (Acute) Hyponatremia (Acute) Dehydration (Acute) Osteomyelitis of sacroiliac region (Resolved) Patient is markedly decompressed. Stool per stoma. We will remove NG tube and allow regular diet. GI episode appears resolved The patient's abdominal x-ray this morning continues is demonstrate significant amount of fecal loading of the large bowel. 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 Her chronic pain management with Percocet is likely aggravating the situation. I recommend to her a daily fiber supplementation and I have discussed options and technique. Patient may advance to using a MiraLAX like product if required or combination of the 2. The patient clearly does not appear to require surgical intervention at this time. Patient reports that she had a previous colonoscopy performed approximately 5 years ago at an outside location. She has had an opportunity to ask and have questions answered. Power Thorne M.D., F.A.C.S.
--- NOTE | 2020-10-22 06:18 | DCINST_ITS ---
Discharge Diet: - - Calorie control diet as recommended per primary care Discharge Activity: Return to Normal Activity, No Restrictions, May Shower Additional Dressing/Incision Instructions:: I recommend taking a fiber supplementation daily. This can be a product like Metamucil or Citrucel or Benefiber or FiberCon or generic. A tablespoon in some water or juice daily. If this still does not achieve the desired result then I would recommend adding a product like MiraLAX or generic. 1 capful daily or a regimen is determined by the patient for affect. Allergies/Adverse Reactions: Allergies morphine Allergy (Verified 10/21/20 05:38) Rash hydrocodone bitartrate [From Vicodin] Adverse Reaction (Verified 10/21/20 05:38) HEADACHE ondansetron HCl [From Zofran (as hydrochloride)] Adverse Reaction (Verified 10/21/20 05:38) made me feel really weird Medications to take at Discharge Acetaminophen/Diphenhydramine [Tylenol Pm Ex-Strength Caplet] 2 tab PO QHS 09/15/16 Metformin [Metformin HCl] 1,000 mg PO LUNCH 09/15/16 Oxycodone HCl/Acetaminophen [Percocet 5-325] 1 tablet PO TID PRN PRN 11/24/16 Keflex 500 PO DAILY 10/21/20 Primary Care Physician: Adele Park MD [Primary Care Provider] - Test Results: Test results from this visit will be discussed in further detail at your follow- up appointment, if applicable.
[2020-10-22 06:51] VITALS: PULSE 83
[2020-10-22 06:52] LABS: Absolute Lymphocyte Count 1.42 X10^3/uL (0.83-4.51); Absolute Neutrophil Count 4.7 X10^3/uL (2.0-7.7); Basophil# 0.02 X10^3/uL; Basophil% 0.3 % (0-1); Eosinophil# 0.08 X10^3/uL; Eosinophils% 1.2 % (0-5); Hemoglobin 12.5 g/dL (12.0-15.0); Lymphocyte # 1.42 X10^3/ul (4.0); Lymphocyte % 21.4 % (19-41); Mean Corp Hgb Conc 29.8 g/dL (32-36); Mean Platelet Vol. 9.1 fl (6.2-12.0); Monocyte# 0.37 X10^3/uL; Monocyte% 5.6 % (0-10); NRBC Flagged by Analyzer 0 % (0-5); Neutrophil # 4.74 X10^3/uL (2.7-7.7); Neutrophil % 71.3 % (47-70); Platelet Count 240 K/mm3 (150-450); RBC Distribution Width CV 15.7 % (11.6-14.6); RBC Distribution Width SD 47.7 fl (35.1-43.9); White Blood Count 6.6 K/mm3 (4.4-11.0)
[2020-10-22 07:39] LABS: ALB/GLOB Ratio 0.9 RATIO (0.9-2.4); AST(SGOT) 13 U/L (15-37); Alanine Aminotransfer ALT/SGPT 16 U/L (13-56); Albumin, Serum 3.1 g/dL (3.2-5.0); Alkaline Phosphatase 64 U/L (45-117); Anion Gap 7 (5-15); BUN 17 mg/dL (7-18); BUN/Creat Ratio 39.4 RATIO (10-20); Calcium,Total 8.5 mg/dL (8.5-10.1); Chloride 110 mmol/L (98-107); Creatinine, Serum 0.43 mg/dL (0.55-1.02); EST Glomerular Filtration Rate 159 mL/min (>60); Est Glom Filt Rate - Afr Amer 193 mL/min (>60); Estimated Creatinine Clearance 128.32 ml/min; Globulin 3.5 g/dL (2.2-4.2); Glucose 112 mg/dL (74-106); Magnesium 2.2 mg/dL (1.6-2.6); Potassium 3.8 mmol/L (3.5-5.1); Protein, Total 6.6 g/dL (6.4-8.2); Sodium Level 143 mmol/L (136-145); Thyroid Stim Hormone (TSH) 0.79 uIU/mL (0.358-3.74)
[2020-10-22 09:45] VITALS: BP 109/59; PULSE 72; RESP 18; TEMP 37; O2SAT 95
[2020-10-22] MEDS: Heparin Injection (Vial) 5,000 UNIT/ML VIAL 5000 UNIT SC (09:50)
--- NOTE | 2020-10-22 09:54 | DCINST_ITS ---
- Discharge Diagnoses Current Active Problems: Current Active and Chronic Problems Abdominal pain (Acute) Small bowel obstruction (Acute) You will use the following diet at home:: Calorie/Carbohydrate Controlled (specify 1200, 1400, etc) Your food should be the consistency of: Regular Your liquids should be the consistency of: Regular/Thin Discharge Activity: Return to Normal Activity, No Restrictions, May Shower Additional Dressing/Incision Instructions:: I recommend taking a fiber supplementation daily. This can be a product like Metamucil or Citrucel or Benefiber or FiberCon or generic. A tablespoon in some water or juice daily. If this still does not achieve the desired result then I would recommend adding a product like MiraLAX or generic. 1 capful daily or a regimen is determined by the patient for affect. Allergies/Adverse Reactions: Allergies morphine Allergy (Verified 10/21/20 05:38) Rash hydrocodone bitartrate [From Vicodin] Adverse Reaction (Verified 10/21/20 05:38) HEADACHE ondansetron HCl [From Zofran (as hydrochloride)] Adverse Reaction (Verified 10/21/20 05:38) made me feel really weird Medications to take at Discharge Acetaminophen/Diphenhydramine [Tylenol Pm Ex-Strength Caplet] 2 tab PO QHS 09/15/16 Metformin [Metformin HCl] 1,000 mg PO LUNCH 09/15/16 Oxycodone HCl/Acetaminophen [Percocet 5-325] 1 tablet PO TID PRN PRN 11/24/16 Keflex 500 PO DAILY 10/21/20 Primary Care Physician: Adele Park MD [Primary Care Provider] - Please follow up with your Primary Care Physician in: 1-2 weeks-call for appt at d/c for hospital followup Test Results: Test results from this visit will be discussed in further detail at your follow- up appointment, if applicable.
--- NOTE | 2020-10-22 09:55 | DS.PCM_ITS ---
Discharge Date and Diagnosis - Problem List Patient Problems: Active and Suspected Problems Abdominal pain (Acute) Small bowel obstruction (Acute) Date of Admission: 10/21/20 Date of Discharge: 10/22/20 - Primary Discharge Diagnosis Acute Problems: Active Problems Abdominal pain (Acute) Small bowel obstruction (Acute) - Secondary Discharge Diagnosis Chronic Problems: Chronic Problems Panic disorder (Chronic) History of renal stone (Chronic) Transverse myelitis (Chronic) urostomy colostomy Ureteral stenosis (Chronic) DM II (diabetes mellitus, type II), controlled (Chronic) Anemia of chronic disease (Chronic) Low back pain (Chronic) 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 LLQ pain today, hx colostomy, urostomy, non-healing sacral ulcer, transverse myelitis with paralysis, diabetes. RADIATION DOSAGE (If Supplied By Facility): CTDIvol = ( 21.24 ) mGy, DLP = ( 1205.89 ) mGycm TECHNIQUE: Transaxial images were obtained from the dome of the diaphragm to the symphysis pubis with oral contrast. was administered. Sagittal and coronal images were reconstructed. Individualized dose optimization techniques were used for this CT. COMPARISON: 02/15/2018 FINDINGS: There are chronic interstitial fibrotic changes of the lung bases. The visualized portions of the heart are within normal limits. Normal liver. There are multiple gallstones. Normal spleen. Normal pancreas. Normal bilateral adrenal glands. Atrophy of the bilateral kidneys with multiple areas of cortical scarring. Bilateral nephrolithiasis increased in size and number since the prior study without hydronephrosis demonstrated. Normal visualized stomach. There are multiple distended loops of small bowel in the lower abdomen which are fluid-filled with maximum luminal diameter measuring 3.3 cm. There is a transition point in the left lower abdomen (anterior) evident on images 100-105 with small bowel fecalization seen on image 100. Just beyond the transition point, there is relative wall thickening of the bowel distal to the transition point. Right lower quadrant ileostomy is identified. Left lower quadrant hernia containing colon is overall stable; query history of colostomy. Diffuse fecal retention throughout the colon. There is diffuse atherosclerotic calcification of the abdominal aorta, without a demonstrated aneurysm. Small caliber infrarenal IVC and iliac veins. Normal retroperitoneum. Normal urinary bladder. Broad eventration of the anterior abdominal wall with protruding colon stable. Similar chronic deformity of the pelvis and proximal femurs/hips. No gali bony destructive process. There are ossifications within the spinal canal (image 31). CT/Abdomen/Pelvis WITH Contrast IMPRESSION: 1. Small bowel obstruction with transition point in the anterior left lower abdomen. No pneumoperitoneum, ascites or focal fluid collection. 2. Increasing bilateral nephrolithiasis without hydronephrosis. Cystectomy. Right lower quadrant ileostomy. 3. Additional similar chronic changes, as above and previously reported. Electronically Signed: Hermann Boothe MD ([place]) at 8:06 EST , Service support , HISTORY: Small bowel obstruction. Comparison study is an x-ray from yesterday, and a CT scan from yesterday. Findings: The left femoral neck chronic fracture with severe bony remodeling of the left acetabulum is unchanged. 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 Fracture to the L2 vertebral body with hyperostosis and focal scoliosis remains. Calcifications within the left hemiabdomen, likely within the left kidney remain. Since the previous study and esophagogastric tube has been placed. The tip in the proximal sidehole both below the diaphragm, likely within the stomach. Multiple gallstones are present right lateral to the L3 vertebral body. Lung bases are relatively clear. RAD/Abd Decub and/or Erect(Portabl IMPRESSION: Adequate position of esophagogastric tube. No definitive small bowel obstruction on the x-ray.. at 0542 Reported and signed by: Edilberto Charles MD Consultations Wound Care General Surgery (Dr. Thorne) Operations: None Procedures: None Summary of Care Provided: Ms Palacios is a 60 year old WF with a PMH of transverse myelitis, B LE AKA, Sacral decubitus-chronic and diverting urostomy and colostomy who presented to the ED on the AM of 10/21/2020 with abdominal pain that started in the afternoon the day prior but progressed to a 9/10 on the day of admission. She stated that she has not had any ostomy output since 12 am and had nausea associated as well. She is unclear on the exact timing of her colostomy and diverting urostomy although she believes they both were done within the last [address] was done in the ED and demonstrated a SBP with a transition point in the ant LLQ. She had no ostomy output. She stated that she had an episode similar to this in early September that resolved at home with no intervention but reports that her sx were not as bad at that time. Her VSS were stable until an NGT was place and dilaudid was given and then she had desaturations for which a NRB was placed she was able to be weaned to nasal cannula 2 L fairly quickly and then off of O2 at d/c. She was admitted and given IVF made NPO and given pain meds prn. By the time she arrived to the medical floor she had ostomy output and was feeling much better. She was able to tolerate a PO diet without isues and her abdominal x-ray this morning continued to demonstrate significant amount of fecal loading of the large bowel. 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 Fiber daily was recommend and the option of PRN Miralax was presented as well. She is to f/u with her PCP in 1-2 weeks. Of note she had some erythema on the R breast and the pt states that she is on Keflex for this chronically per ID and it is not new. She will restart this at d/c. Discharge Dx SBO Dehydration Hyponatremia DM-2 Sacral Pressure Wound Transverse Myelitis H/O B LE AKA Constipation Discharge Time >31' Patient Problems: Active and Suspected Problems Abdominal pain (Acute) Small bowel obstruction (Acute) Subjective: Pt states that she is feeling well today. Tolerated breakfast without a problem and has good ostomy output. Anxious to go home. - Physical Exam Vitals/I&O's: Vital Signs Temp Pulse Resp BP Pulse Ox 98.6 F 72 18 109/59 L 95 10/22/20 09:45 10/22/20 09:45 10/22/20 09:45 10/22/20 09:45 10/22/20 09:45 Oxygen Flow Rate (L/min) 2 Oxygen Delivery Method Room Air Weight: 72.7 kg Body Mass Index (BMI) 26.6 Finger Stick Blood Glucose 107 Intake and Output for Last 24 Hours 10/20/20 10/21/20 10/22/20 23:59 23:59 23:59 Intake Total 863.33 / 863.33 963.33 / 963.33 Output Total 800 / 800 470 / 470 Balance 63.33 / 63.33 493.33 / 493.33 General: Alert, Oriented x3, Cooperative, No apparent distress, Well developed, Well nourished HEENT: Atraumatic, PERRLA, EOMI, Normocephalic, EAC Clear Oral: Moist Mucosa, No Gingival or Mucosal Lesions/ Ulcerations Neck: Supple, Trachea Midline, Thyroid Normal Size and Texture Lungs: Clear to auscultation, Normal air movement, No rhonchi, No wheeze, No rales Cardiovascular: Regular rate, Regular Rhythm, Normal S1, Normal S2, No murmurs, No Ectopic Activity, No rub noted, No Gallop Abdomen: Bowel Sounds Present, Soft, Non Tender, Non-Distended, - - Urostomy with good UO, Colostomy with sig stool output Extremities: No clubbing, No cyanosis, No edema, Capillary Refill Less than 3 Seconds, Peripheral Pulses Normal, - - UE as pt has B LE AKA Skin: No breakdown, - - L lateral Breast is erythematous Musculoskeletal: No Tenderness to Palpation of Joints or Extremities, No Muscle Wasting Lymphatic: No Cervical, Supraclavicular, or Inguinal Adenopathy Neurological: Cranial nerves II-XII grossly intact, Neuro grossly intact Psych/Mental Status: Normal Affect, Appropriate Microbiology Past 72 Hours 10/21/20 10:00 Mucosa - Nose SARS-CoV-2 Antigen (Rapid) - Final Laboratory Results 10/21/20 09:40: Lactic Acid 0.9 10/21/20 13:37: POC Glucose 158 H 10/21/20 17:45: POC Glucose 115 H 10/21/20 23:26: POC Glucose 124 H 10/22/20 05:18: POC Glucose 122 H 10/22/20 06:20: WBC 6.6, RBC 5.00, Hgb 12.5, Hct 42.0, MCV 84.0, MCH 25.0 L, MCHC 29.8 L, RDW Std Deviation 47.7 H, RDW Coeff of Patel 15.7 H, Plt Count 240, MPV 9.1, Immature Gran % (Auto) 0.200, Neut % (Auto) 71.3 H, Lymph % (Auto) 21.4, Runnels % (Auto) 5.6, Eos % (Auto) 1.2, Baso % (Auto) 0.3, Absolute Neuts (auto) 4.7, Absolute Lymphs (auto) 1.42, Nucleated RBC % 0 10/22/20 06:20: Sodium 143, Potassium 3.8, Chloride 110 H, Carbon Dioxide 26.0, Anion Gap 7, BUN 17, Creatinine 0.43 L, Estim Creat Clear Calc 128.32, Est GFR (MDRD) Af Amer 193, Est GFR (MDRD) Non-Af 159, BUN/Creatinine Ratio 39.4 H, Glucose 112 H, Calcium 8.5, Phosphorus 3.0, Magnesium 2.2, Total Bilirubin 0.60, AST 13 L, ALT 16, Alkaline Phosphatase 64, Total Protein 6.6, Albumin 3.1 L, Gl obulin 3.5, Albumin/Globulin Ratio 0.9, TSH 0.79 Current Medications Heparin Sodium (Porcine) (Heparin Injection (Vial) 5,000 Unit/Ml Vial) 5,000 unit SC Q12 [facility] Last Admin: 10/22/20 09:50 Dose: 5,000 unit Documented by: Hydromorphone HCl (Hydromorphone 0.5 Mg/0.5 Ml Syringe) 0.25 mg IV Q6H PRN PRN PRN Reason: Pain Score 6-10 Last Admin: 10/21/20 21:54 Dose: 0.25 mg Documented by: Lactated Ringer's () 1,000 mls @ 30 mls/hr IV .[id number] [facility] Last Infusion: 10/22/20 06:56 Dose: 30 mls/hr Documented by: Influenza Virus Vaccine Quadrival (Influenza Vaccine (6mos+)/Pf 0.5 Ml Syringe) 0.5 ml IM .ONCE ONE Stop: 10/22/20 10:01 Insulin Human Lispro (Insulin Lispro 100 Unit/Ml Insuln.Pen) 0 unit SC Q6 [facility]; Protocol Last Admin: 10/22/20 05:28 Dose: Not Given Documented by: Promethazine HCl (Promethazine 25 Mg/Ml Syringe) 6.25 mg IV Q6H PRN PRN PRN Reason: NAUSEA/VOMITING Discharge Diet: - - Calorie control diet as recommended per primary care Discharge Activity: Return to Normal Activity, No Restrictions, May Shower Additional Dressing/Incision Instructions:: I recommend taking a fiber supplementation daily. This can be a product like Metamucil or Citrucel or Benefiber or FiberCon or generic. A tablespoon in some water or juice daily. If this still does not achieve the desired result then I would recommend adding a product like MiraLAX or generic. 1 capful daily or a regimen is determined by the patient for affect. Home Medications: Medications to take at Discharge Acetaminophen/Diphenhydramine [Tylenol Pm Ex-Strength Caplet] 2 tab PO QHS 09/15/16 Metformin [Metformin HCl] 1,000 mg PO LUNCH 09/15/16 Oxycodone HCl/Acetaminophen [Percocet 5-325] 1 tablet PO TID PRN PRN 11/24/16 Keflex 500 PO DAILY 10/21/20 Primary Care Physician: Adele Park MD [Primary Care Provider] - Please follow up with your Primary Care Physician in: 1-2 weeks-call for appt at d/c for hospital followup Medical Necessity - Tobacco Use Smoking Status: Former smoker Tobacco Use: Non-smoker Meaningful Use Info Meaningful Use Diagnoses (Choose all that apply): None applicable Inpatient E&M: 66595 Disch Hosp
--- NOTE | 2020-10-22 11:12 | PHA.DC.MR ---
Pharmacy Service has performed discharge medication reconciliation for this patient. The patient's discharge medication list was reviewed for discrepancies and discrepancies were resolved. Home Medications Acetaminophen/Diphenhydramine [Tylenol Pm Ex-Strength Caplet] 2 tab PO QHS 09/15/16 Metformin [Metformin HCl] 1,000 mg PO LUNCH 09/15/16 Oxycodone HCl/Acetaminophen [Percocet 5-325] 1 tablet PO TID PRN PRN 11/24/16 Keflex 500 PO DAILY 10/21/20
--- NOTE | 2020-10-22 11:24 | NURSING ---
In to reassess wounds and assess stomas. pt had a moderate amount of semi formed soft brown stool in colostomy appliance. abdomen soft and rounded. peristomal hernia noted. this has been present for quite some time and patient states has not been causing pain. pt states she tolerated breakfast well. pt states the doctor is discharging pt home today.
--- NOTE | 2020-10-22 11:35 | CASEMGMT ---
JUAN R CHEUNG NOTE: Pt being discharged. JUAN R CHEUNG to room to discuss discharge planning. She denies any needs/questions/concerns w/going home. Her will be taking her home @ discharge. Lorenza LOCKETT RN, CM
--- NOTE | 2020-10-26 13:10 | NURSING ---
THIS RN CALLED PT TO FOLLOW-UP ON EXTRAVASATION SITE, NO ANSWER AND NO OPTION FOR VMAIL.
== END 2020-10-22 11:35 | disposition home or self-care (01) | DRG 388 ==
LOC: ED 09:10 → MS3 09:15 → PCU 11:06
PROVIDERS: Emergency Medicine; Admitting Provider Internal Medicine; Emergency Provider Emergency Medicine; PCP Internal Medicine; Visit Provider Internal Medicine
DX: K56.601 Complete intestinal obstruction, unspecified as to cause (principal); L89.154 Pressure ulcer of sacral region, stage 4; G37.3 Acute transverse myelitis in demyelinating disease of central nervous system; E87.1 Hypo-osmolality and hyponatremia; K43.5 Parastomal hernia without obstruction or gangrene; E11.65 Type 2 diabetes mellitus with hyperglycemia; R09.02 Hypoxemia; T40.2X5A Adverse effect of other opioids, initial encounter; Y92.9 Unspecified place or not applicable; G83.9 Paralytic syndrome, unspecified; E86.0 Dehydration; E86.1 Hypovolemia; M54.2 Cervicalgia; G89.29 Other chronic pain; E88.09 Other disorders of plasma-protein metabolism, not elsewhere classified; D63.8 Anemia in other chronic diseases classified elsewhere; Y92.239 Unspecified place in hospital as the place of occurrence of the external cause; Z79.891 Long term (current) use of opiate analgesic; Z79.84 Long term (current) use of oral hypoglycemic drugs; Z79.899 Other long term (current) drug therapy; Z93.6 Other artificial openings of urinary tract status; Z93.3 Colostomy status; Z89.612 Acquired absence of left leg above knee; Z89.611 Acquired absence of right leg above knee; Z87.891 Personal history of nicotine dependence; Z23 Encounter for immunization
CPT/HCPCS: 36415; 71045; 74018; 74019; 74177; 80053; 82962; 83605; 83690; 83735; 84100; 84443; 85025; 87426; 97802; 99285; G0008; J7120; Q9967; 90686; A4216

== ENCOUNTER → 2020-12-23 16:49 | Outpatient (CLI) | payer MEDICARE, SELFPAY ==
[2020-10-21 12:26] VITALS: BMI 26.6
[2020-12-23 19:06] LABS: Amphetamine Urine VISTA NEGATIVE (<1000 ng/mL); Barbiturate Urine VISTA NEGATIVE (< 200 ng/mL); Benzodiazepine Urine VISTA NEGATIVE (< 200 ng/mL); Cocaine Urine VISTA NEGATIVE (< 300 ng/mL); Ecstacy Urine VISTA NEGATIVE (< 500 ng/mL); Methadone Urine VISTA NEGATIVE (< 300 ng/mL); PCP Urine VISTA NEGATIVE (< 25 ng/mL); THC Urine VISTA NEGATIVE (< 50 ng/mL); Vista UDS pH Range 7
== END ==
PROVIDERS: PCP Internal Medicine; Referring Provider Anesthesiology Pain Medicine; Visit Provider Anesthesiology Pain Medicine
DX: F11.20 Opioid dependence, uncomplicated (principal)
CPT/HCPCS: 80307

== ENCOUNTER 2021-02-06 15:54 | Emergency (ER) | payer MEDICARE, SELFPAY ==
[2020-10-21 12:26] VITALS: BMI 26.6
[2021-02-06] VITALS (12 sets, daily range): BP systolic 78–115; BP diastolic 51–79; PULSE 58–90; RESP 12–18; TEMP 36.8; O2SAT 90–100; BMI 27.5
--- NOTE | 2021-02-06 16:19 | ED.DCSUM_ITS ---
- ER Visit Summary Date of Service: 02/06/21 Chief Complaint: Right lower quadrant pain History of Present Illness: The patient is a 60 F presenting with right lower quadrant pain. This started on . She has had right sided abdominal pain and nausea. She denies vomiting. She has a urostomy and colostomy which have had normal output. She has a chronic wound to her left flank and buttocks which she states are improved from previous and followed by the wound clinic. Denies blood in stool or urine. Denies fever. Denies cough. Denies chest pain or shortness of breath. She discussed with her primary care physician and was started on Cipro for possible UTI. She has an appointment upcoming this week. Physical Examination: Vitals are stable. Patient is afebrile. Alert no acute distress. HEENT exam is unremarkable. Neck is supple. Lungs are clear and equal bilaterally. Heart is regular rate and rhythm. Abdomen is soft right upper and lower quadrant tenderness with no rebound or guarding. Urostomy, colostomy. Chronic left flank wound Extremities right AKA, left BKA Skin is warm and dry. Remainder of exam is unremarkable. Emergency Department Course and Treatment: Patient was given Dilaudid IV. CBC, chemistries unremarkable other than glucose 131, BUN 27. Urinalysis shows 25-50 white blood cells, 10-25 red blood cells. Patient tolerated oral contrast for CT scan. She was awaiting CT scan and became unresponsive and stopped breathing. She was cyanotic. Respirations were assisted with [id number]. She was given etomidate. She was intubated using glidescope. Vocal cords were visualized and tube passed through cords. Equal breath sounds bilaterally. Chest x-ray read by myself and radiology shows left basilar consolidation. EKG is sinus rhythm rate of 69 with anterior inferior T wave inversion. Blood cultures were sent. Covid is negative. Troponin 0.181. BNP 635.8. Lactic acid 6.2. Patient was given propofol IV. She developed hypotension and propofol was stopped and she was started on fentanyl drip. She was given IV fluids with improvement of her blood pressure. CT chest abdomen pelvis was obtained and shows mildly fatty liver. Perihepatic fluid. Cholelithiasis. Gallbladder wall thickening with pericholecystic fluid. Scarring of the kidneys with calculi. No hydronephrosis. Ileal conduit is noted to the right abdominal wall. There is a left-sided colostomy. Mild retr operitoneal adenopathy. Bilateral pleural effusions with basilar consolidation/atelectasis, right more the left. Patient was given vancomycin and Zosyn IV. On reevaluation she is now awake and alert on the ventilator. She is able to communicate with writing. She declined sedation. Denies pain. Discussed with Dr. Barnett. Due to patient's complicated history he feels she should be transferred to tertiary care center. D[facility]ed with [facility] for transfer. Disposition: Transfer [facility] Impression: Right-sided abdominal pain, cholelithiasis with pericholecystic fluid, respiratory arrest, intubation by ED physician, bilateral pleural effusions, basilar consolidation This note was generated with [employer]eth[employer] dictation software. It may contain incorrect words, spelling, and punctuation that were not noted in review of the chart prior to signing ED Disposition - Plan for ED Patient: Referrals: Adele Park MD [Primary Care Provider] -
[2021-02-06] MEDS: HYDROmorphone 1 MG/ML Syringe IV (16:37)
[2021-02-06 16:43] LABS: Absolute Lymphocyte Count 0.86 X10^3/uL (0.83-4.51); Absolute Neutrophil Count 5.3 X10^3/uL (2.0-7.7); Basophil# 0.02 X10^3/uL; Basophil% 0.3 % (0-1); Eosinophil# 0.08 X10^3/uL; Eosinophils% 1.2 % (0-5); Hematocrit 47.5 % (37-47); Hemoglobin 13.7 g/dL (12.0-15.0); Lymphocyte # 0.86 X10^3/ul (4.0); Mean Corp Hgb Conc 28.8 g/dL (32-36); Mean Corpuscular Hgb 23.9 pg (27.0-32.0); Mean Corpuscular Volume 82.9 fL (81-99); Mean Platelet Vol. 9.5 fl (6.2-12.0); Monocyte# 0.31 X10^3/uL; Monocyte% 4.7 % (0-10); NRBC Flagged by Analyzer 0 % (0-5); Neutrophil # 5.31 X10^3/uL (2.7-7.7); Neutrophil % 80.3 % (47-70); Platelet Count 264 K/mm3 (150-450); RBC Distribution Width CV 17.2 % (11.6-14.6); RBC Distribution Width SD 50.2 fl (35.1-43.9); Red Blood Count 5.73 M/mm3 (4.2-5.4); White Blood Count 6.6 K/mm3 (4.4-11.0)
[2021-02-06 17:11] LABS: Mucous, Urine 0 SEEN /hpf (<or=2+); Squamous Epithelial Cells - UA 0 SEEN /hpf (5-10)
[2021-02-06 17:13] LABS: ALB/GLOB Ratio 0.8 RATIO (0.9-2.4); AST(SGOT) 33 U/L (15-37); Alanine Aminotransfer ALT/SGPT 23 U/L (13-56); Albumin, Serum 3.1 g/dL (3.2-5.0); Alkaline Phosphatase 59 U/L (45-117); Anion Gap 5 (5-15); BUN 27 mg/dL (7-18); Calcium,Total 8.3 mg/dL (8.5-10.1); Chloride 105 mmol/L (98-107); Creatinine, Serum 0.75 mg/dL (0.55-1.02); EST Glomerular Filtration Rate 84 mL/min (>60); Est Glom Filt Rate - Afr Amer 102 mL/min (>60); Estimated Creatinine Clearance 73.57 ml/min; Glucose 131 mg/dL (74-106); Potassium 4.9 mmol/L (3.5-5.1); Protein, Total 7.1 g/dL (6.4-8.2); Sodium Level 136 mmol/L (136-145)
[2021-02-06 17:14] LABS: Color, Urine Yellow (Yellow); Glucose, Dipstick Normal (Normal); Ketone-Dipstick Negative (Negative); Leukocyte Esterase-Dipstick 500 /ul (Negative); Nitrite-Dipstick Negative (Negative); Occult Blood-Urine 150 /ul (Negative); Protein-Dipstick 100 mg/dl (Negative); Specific Gravity, Urine 1.015 (1.002-1.030); Urine Bilirubin Dipstick Negative (Negative); Urine Clarity Cloudy (Clear); Urine Urobilinogen Normal (Normal); Urine pH 6.5 (5.0 - 8.0)
[2021-02-06 17:20] LABS: Hyaline Cast 0-5 SEEN /lpf (0-5)
[2021-02-06 17:21] LABS: Bacteria RARE /hpf (None Seen); Red Blood Cells-Urine 10-25 SEEN /hpf (0-5); White Blood Cells 25-50 SEEN /hpf (0-5)
--- NOTE | 2021-02-06 18:12 | EKG12_ITS ---
Test Reason : UNRESPONSIVE Blood Pressure : / mmHG Vent. Rate : 069 BPM Atrial Rate : 069 BPM P-R Int : 184 ms QRS Dur : 098 ms QT Int : 436 ms P-R-T Axes : 060 142 -30 degrees QTc Int : 467 ms Normal sinus rhythm Right axis deviation Low voltage QRS Incomplete right bundle branch block Confirmed by WILL GUILLERMO, WALE ([id number]), non linear editor JANEL BRAN ([id number]) on 02/09/2021 8:56:39 AM Referred By: HEIKE Confirmed By:WAEL SOLIS MD
[2021-02-06] MEDS: Etomidate 20 MG/10 ML Vial IV (18:14)
[2021-02-06] MEDS: Propofol 10MG/Ml 1,000 MG/100 ML Bottle 4.5 MG CONT INF (18:18)
--- NOTE | 2021-02-06 18:18 | CT_ITS ---
STUDY: CT CHEST T ABDOMEN/PELVIS WITH CONTRAST REASON FOR EXAM: Female, 60 years old. sob RADIATION DOSAGE (If Supplied By Facility): CTDIvol = ( 24.67 ) mGy, DLP = ( 2047.28 ) mGycm TECHNIQUE: Transaxial imaging was performed following intravenous administration of IV 100mL Isovue-370. Individualized dose optimization techniques were used for this CT. COMPARISON: No relevant priors. FINDINGS: CHEST An endotracheal tube is noted in place. Bilateral pleural effusions with basilar consolidation/atelectasis, right more than left. Normal heart and pericardium. Normal mediastinum. Normal hilar regions. Normal unenhanced pulmonary arteries. Normal aorta arch and descending thoracic aorta. Normal osseous structures. ABDOMEN Fatty liver. There is perihepatic fluid. Cholelithiasis. Mild gallbladder wall thickening and pericholecystic fluid. No significant dilatation of the extrahepatic biliary system. Normal spleen. Normal pancreas. Normal bilateral adrenal glands. Multiple scars with cortical thinning of the kidneys. Bilateral renal calculi without hydronephrosis. Nasogastric tube extends into the stomach. Normal small intestine. Normal colon. The appendix is visualized and appears normal. Normal abdominal aorta. Normal inferior vena cava. Mild adenopathy in the retroperitoneum. There is a left-sided colostomy with adjacent herniated bowel loops. There is a right sided ileal conduit. Chronic deformity of the hips. Severe old compression fracture of L2. Nonvisualization of urinary bladder. CT/CT Chest, Abd, Pel w/Contrast IMPRESSION: Mildly fatty liver. Perihepatic fluid. Cholelithiasis. Gallbladder wall thickening with pericholecystic fluid. Scarring of the kidneys with calculi. No hydronephrosis. Ileal conduit is noted to the right abdominal wall. There is a left-sided colostomy. Mild retroperitoneal adenopathy. Bilateral pleural effusions with basilar consolidation/atelectasis, right more the left. Electronically Signed: Anant Dos Santos DO at 21:01 EDT Tel [phone], Service support ,
--- NOTE | 2021-02-06 18:55 | CPS ---
Critical ABG results handed to Dr Clay at 1852
[2021-02-06 18:56] LABS: Bedside Glucose 261 mg/dL (70-110)
[2021-02-06 18:56] LABS: Allen Test Positive; Base Excess -11 mmol/L (-2 to +2); Bicarbonate 18.4 mmol/L (22-26); Blood Gas Specimen Type ART; FI02 100; Mode AC; O2 Delivery Device Adult Vent; PEEP 12; PO2 74 mmHG (75-100); RR 12; SITE L Radial; SO2 89 % (95-99); Total Carbon Dioxide 20 mmol/L; Vt 450; pCO2 54.4 mmHg (35-45); pH 7.14 (7.35-7.45)
[2021-02-06 18:58] LABS: Absolute Lymphocyte Count 1.41 X10^3/uL (0.83-4.51); Absolute Neutrophil Count 5.3 X10^3/uL (2.0-7.7); Basophil# 0.03 X10^3/uL; Basophil% 0.4 % (0-1); Eosinophil# 0.08 X10^3/uL; Eosinophils% 1.1 % (0-5); Hematocrit 48.6 % (37-47); Hemoglobin 13.6 g/dL (12.0-15.0); Lymphocyte # 1.41 X10^3/ul (4.0); Lymphocyte % 19.7 % (19-41); Mean Corpuscular Hgb 23.5 pg (27.0-32.0); Mean Corpuscular Volume 84.1 fL (81-99); Mean Platelet Vol. 9.6 fl (6.2-12.0); Monocyte# 0.23 X10^3/uL; Monocyte% 3.2 % (0-10); NRBC Flagged by Analyzer 0 % (0-5); Neutrophil # 5.32 X10^3/uL (2.7-7.7); Neutrophil % 74.6 % (47-70); Platelet Count 273 K/mm3 (150-450); RBC Distribution Width CV 17.2 % (11.6-14.6); RBC Distribution Width SD 50.5 fl (35.1-43.9); Red Blood Count 5.78 M/mm3 (4.2-5.4); White Blood Count 7.1 K/mm3 (4.4-11.0)
[2021-02-06] MEDS: Midazolam 2 MG/2 ML Syringe IV (19:08)
[2021-02-06 19:18] LABS: ALB/GLOB Ratio 0.8 RATIO (0.9-2.4); AST(SGOT) 26 U/L (15-37); Alanine Aminotransfer ALT/SGPT 22 U/L (13-56); Albumin, Serum 2.9 g/dL (3.2-5.0); Alkaline Phosphatase 59 U/L (45-117); Anion Gap 14 (5-15); BUN 28 mg/dL (7-18); BUN/Creat Ratio 28.7 RATIO (10-20); Calcium,Total 7.7 mg/dL (8.5-10.1); Chloride 105 mmol/L (98-107); Creatinine, Serum 0.98 mg/dL (0.55-1.02); EST Glomerular Filtration Rate 62 mL/min (>60); Est Glom Filt Rate - Afr Amer 75 mL/min (>60); Estimated Creatinine Clearance 56.31 ml/min; Globulin 3.6 g/dL (2.2-4.2); Glucose 241 mg/dL (74-106); Protein, Total 6.5 g/dL (6.4-8.2); Sodium Level 138 mmol/L (136-145)
[2021-02-06 19:20] LABS: BNP,B-Type NATRIURETIC PEPTIDE 635.8 pg/mL (0-100)
--- NOTE | 2021-02-06 19:30 | RAD_ITS ---
INDICATION: NG placement -- NG/OG Verification EXAMINATION/TECHNIQUE: X-RAY - XR Abdomen 1 View COMPARISON: None FINDINGS: BOWEL GAS PATTERN: There are a few dilated loops of partially visualized small bowel measuring up to 3.5 cm in diameter consistent with known small bowel obstruction. FREE AIR: Not assessed on a single supine view. ORGANOMEGALY: Not seen. CALCIFICATIONS: Multiple calcifications overlying the left kidney. LOWER CHEST: Left basilar focal consolidation. BONES AND SOFT TISSUES: Severe degenerative changes of the visualized spine with again seen destruction of L1. LINES AND TUBES: NG tube is in appropriate position within the stomach. RAD/Abdomen Single View IMPRESSION: NG tube is in appropriate position within the stomach. Few dilated loops of small bowel consistent with known small bowel obstruction. Left basilar consolidation. Electronically Signed: Anthony Jade MD at 20:44 EDT Tel , Service support ,
--- NOTE | 2021-02-06 19:30 | RAD_ITS ---
STUDY: X-RAY CHEST REASON FOR EXAM: Female, 60 years old. Intubation TECHNIQUE: Frontal view COMPARISON: None. FINDINGS: Endotracheal tube with tip 28 mm above the shine. Nasogastric tube extends into the stomach. The lungs are expanded. Left basilar focal consolidation. Normal size heart. Normal mediastinum and trae. Normal visualized pulmonary arteries. Normal visualized aortic arch and descending thoracic aorta. Normal visualized thoracic spine. Normal visualized ribs, clavicles, and shoulders. There is no demonstrated abnormality of the visualized soft tissue structures of the upper abdomen. RAD/Chest 1 View (Portable) IMPRESSION: Left basilar consolidation. Electronically Signed: Anant Dos Santos DO at 20:06 EDT Tel [phone], Service support ,
[2021-02-06 19:34] LABS: Lactic Acid 6.2 mmol/L (0.4-1.9)
[2021-02-06] MEDS: 0.9% Normal Saline 1,000 ML 999 ML IV (19:44)
[2021-02-06 22:47] LABS: Lipase 31 U/L (73-393)
[2021-02-06 22:54] LABS: Reflex Lactate? Y
[2021-02-06 23:58] LABS: Lactic Acid 1.9 mmol/L (0.4-1.9)
[2021-02-07] VITALS: BP 100/75; PULSE 62; RESP 14; O2SAT 95
--- NOTE | 2021-02-07 00:12 | ED.RN ---
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 PT TOLERATED NO RESTRAINTS WELL AND SPOUSE REMAINS AT BEDSIDE. PT'S ILEOSTOMY BAG ATTACHED TO CARRILLO BAG PATENT AND DRAINING CLEAR YELLOW W/SEDIMENT.
--- NOTE | 2021-02-07 00:15 | ED.RN ---
PT HAS BEEN OFFERED VERSED 2MG IVP MANY TIMES AND REFUSES TO TAKE MEDICATION, PT PREFERS TO BE ON VENT AND AWAKE, ABLE TO COMMUNICATE BY WRITING.
[2021-02-07 00:30] VITALS: PULSE 71; RESP 14; RESP 17; O2SAT 96
[2021-02-07 01:00] VITALS: BP 94/70; PULSE 61; RESP 14; O2SAT 95
[2021-02-07 02:10] VITALS: PULSE 66; RESP 14; RESP 16; O2SAT 94
[2021-02-07 02:18] VITALS: BP 103/75; PULSE 68; RESP 12; O2SAT 92
[2021-02-07 02:28] VITALS: BP 103/75; PULSE 68; RESP 12; TEMP 36.3; O2SAT 93
[2021-02-07] MEDS: DiphenhydrAMINE 50 MG/ML Syringe IV (03:08)
== END 2021-02-07 03:18 | disposition short-term general hospital (02) ==
LOC: ED 16:24
PROVIDERS: Emergency Medicine; Emergency Provider Emergency Medicine; PCP Internal Medicine
DX: R10.31 Right lower quadrant pain (principal); R09.2 Respiratory arrest; R23.0 Cyanosis; I95.9 Hypotension, unspecified; K80.20 Calculus of gallbladder without cholecystitis without obstruction; J90 Pleural effusion, not elsewhere classified; Z20.822 Contact with and (suspected) exposure to COVID-19; Z79.899 Other long term (current) drug therapy; Z93.3 Colostomy status; Z93.6 Other artificial openings of urinary tract status; Z89.611 Acquired absence of right leg above knee; Z89.512 Acquired absence of left leg below knee
CPT/HCPCS: 31500; 36556; 36600; 71045; 71260; 74018; 74177; 80053; 81001; 82803; 82962; 83605; 83690; 83880; 84484; 85025; 87040; 87086; 87088; 87426; 93005; 94002; 94003; 96361; 96365; 96366; 96367; 96375; 99251; 99285; J7030; J7050; Q9967; G0463; J3010